=== PATIENT | male | born 1990 | race Two or more races ===

== ENCOUNTER 2019-09-23 11:33 | Emergency (ER) | payer MEDICAID ==
[~2019-09-23] VITALS: Ht 172.7 cm; Wt 71.2 kg
[2019-09-23] MEDS ORDERED: ABILIFY10 MG ORAL (11:50)
[2019-09-23 11:54] VITALS: BP 116/77
--- NOTE | 2019-09-23 12:05 | NUR ---
ED Nurse Note: Patient walked in to ED and stated " I have a mental disorder and heart condition" pt on Abilify 10mg HS and wants to get psych eval. Denies SI/HI. Patient presented calm, and cooperative, AAO x4, VSS at this time, Stated I need something to eat. Sandwach and juice were provided.
--- NOTE | 2019-09-23 12:22 | Emergency Room Report ---
History of Present Illness General Chief Complaint: General Complaint Source: Patient Present Illness HPI This patient states he has a history of schizoaffective disorder. He is on Abilify for this condition. He states he has been taking his Abilify as prescribed. He notes that he would like to get evaluated by psychiatry. He states he has been hearing some voices occasionally. He denies recent illness. He denies cough or congestion. He denies chest pain or shortness of breath. He denies fever or chills. He states he also has a history of being premature and wanted to make sure that his heart was okay. He states because of his prematurity is why he has this mental illness. He has no other specific complaints. He is requesting a sandwich and a blanket. He denies alcohol or drug use. Allergies: Coded Allergies: No Known Allergies (Unverified , 09/23/19) COVID-19 Screening Contact w/high risk pt: No Recent Travel to affected area: No Experienced COVID-19 symptoms?: No COVID-19 Testing performed [employer]: No Patient History Past Medical History: see triage record, psych hx - Psychoaffective disorder. Social History: Denies: smoking, alcohol use, drug use Reviewed Nursing Documentation: PMH: Agreed; PSxH: Agreed Nursing Documentation-PMH Past Medical History: No History, Except For History Of Psychiatric Problem: Yes - schizoprenia Review of Systems All Other Systems: negative except mentioned in HPI Physical Exam Vital Signs Date Time Temp Pulse Resp B/P (MAP) Pulse Ox O2 Delivery O2 Flow Rate FiO2 09/23/19 11:42 98.6 91 18 116/77 (90) 95 Room Air Sp02 EP Interpretation: reviewed, normal General Appearance: no apparent distress, alert, GCS 15, non-toxic Head: normocephalic, atraumatic Eyes: bilateral eye normal inspection, bilateral eye PERRL ENT: hearing grossly normal, normal pharynx, no angioedema, normal voice Neck: normal inspection, full range of motion Respiratory: no respiratory distress, no retraction, no accessory muscle use, speaking full sentences Gastrointestinal: normal inspection Rectal: deferred Musculoskeletal: back normal, normal range of motion, gait/station normal, non- tender Neurologic: alert, motor strength/tone normal, oriented x3, sensory intact, responsive, speech normal Psychiatric: judgement/insight normal, memory normal, mood/affect normal, no suicidal/homicidal ideation Skin: no rash, normal color Medical Decision Making Diagnostic Impression: Primary Impression: Schizoaffective disorder ER Course Patient has known schizoaffective disorder. He has all of his medications. He is organized and articulate. He is requesting a psychiatric evaluation. Unfortunately that is not available routinely from the emergency department. The patient is not suicidal homicidal. He is not incapacitated by his mental illness at this time. He was given the requested sandwich. I obtained an EKG which was unremarkable. He was also given instructions and directions on how to get to the [facility] psychiatric outpatient facility. Patient indicated intention to go to this facility after leaving here. At this time I did not identify a psychiatric emergency. Patient was given return precautions and follow-up instructions. EKG Diagnostic Results Rate: normal Rhythm: NSR ST Segments: no acute changes Rhythm Strip Diag. Results EP Interpretation: yes Rate: 70's Rhythm: NSR, no PVC's, no ectopy Last Vital Signs Date Time Temp Pulse Resp B/P (MAP) Pulse Ox O2 Delivery O2 Flow Rate FiO2 09/23/19 11:42 98.6 91 18 116/77 (90 95 Room Air Status: improved Disposition: HOME, SELF-CARE Condition: Improved Sheryl Calderon DO Sep 23, 2019 12:21
[2019-09-23 12:40] VITALS: BP 116/77
--- NOTE | 2019-09-23 12:40 | NUR ---
ED Nurse Note: Pt cleared by health care Provider for discharge. DC instructions/psych recomendations was given and explained to pt and verbalized understanding of teachings. All medical deviecs such as ID band removed. Pt is AAO x4, ambulatory and left with all personal belongings.
== END 2019-09-23 12:50 | disposition home or self-care (01) ==
LOC: EMR 12:27
DX: F25.9 Schizoaffective disorder, unspecified (principal)
CPT/HCPCS: 99282